=== PATIENT | male | born 1995 | race Two or more races ===

== ENCOUNTER 2022-08-23 01:54 | Emergency (ER) | payer BC ==
[~2022-08-23] VITALS: Ht 172.7 cm; Wt 99.8 kg
--- NOTE | 2022-08-23 02:40 | NUR ---
BIBSELF C/O ABD PAIN X 3 HRS LOWER ABD, + N/V . PATIENT IS AAOX4. ABLE TO MAKE NEEDS KNOWN. AMBULATORY. PLACED COMFORTABLY IN BED. VITALS CHECKED.
[2022-08-23] MEDS ORDERED: ONDANSETRON HCL/PF 4 MG/2 ML VIAL ONE (02:56)
[2022-08-23] MEDS ORDERED: KETOROLAC TROMETHAMINE 15 MG/ML VIAL ONE (02:56)
[2022-08-23] MEDS ORDERED: IV NS 0.9% 1,000 ML BAG IV ONE (03:00)
[2022-08-23] MEDS ORDERED: ONDANSETRON HCL/PF 4 MG/2 ML VIAL IVP ONE (03:00)
[2022-08-23] MEDS ORDERED: KETOROLAC TROMETHAMINE INJ 30 MG/ML VIAL IV ONE ×2 (03:00→05:30)
--- NOTE | 2022-08-23 03:11 | NUR ---
URINE SPECIMEN SENT TO LAB
--- NOTE | 2022-08-23 03:11 | NUR ---
IV SCOTTIE INSERTED ON LEFT AC G18. BLOOD DRAWN AND SENT TO LAB
--- NOTE | 2022-08-23 03:22 | NUR ---
BROUGHT TO CT DEPT
--- NOTE | 2022-08-23 03:28 | NUR ---
CAME BACK FROM CT DEPT
[2022-08-23 03:40] LABS: BASOPHILS % (AUTO) 0.3 % (0.0-2.0); EOSINOPHILS % (AUTO) 0.1 % (0.0-6.0); HEMATOCRIT 49 % (39-51); HEMOGLOBIN 16.1 g/dL (13.5-17.5); LYMPHOCYTES # (AUTO) 0.9 K/uL (0.8-4.8); LYMPHOCYTES % (AUTO) 5.4 % (20.0-44.0); MEAN CORPUSCULAR HGB CONC 33 g/dl (31.0-36.0); MEAN CORPUSCULAR VOLUME 90 fL (80-96); NEUTROPHILS # (AUTO) 14.6 K/uL (1.8-8.9); NEUTROPHILS % (AUTO) 88.2 % (43.0-81.0); PLATELET COUNT (AUTO) 285 K/uL (150-450); RED BLOOD CELL COUNT(AUTO) 5.41 MIL/uL (4.5-6.0); WHITE BLOOD COUNT (AUTO) 16.6 K/uL (4.3-11.0)
[2022-08-23 03:43] LABS: BILIRUBIN,URINE NEGATIVE (NEGATIVE); COLOR,URINE YELLOW (YELLOW); LEUKOCYTE ESTERASE ,URINE NEGATIVE (NEGATIVE); NITRITE, URINE NEGATIVE (NEGATIVE); PROTEIN,URINE NEGATIVE (NEGATIVE); UGLUCOSE NEGATIVE (NEGATIVE); UROBILINOGEN,URINE 0.2 EU/dL (0.2)
[2022-08-23 03:54] LABS: ALBUMIN 4.3 g/dL (3.4-5.0); BILIRUBIN,DIRECT 0.1 mg/dL (0.0-0.2); BILIRUBIN,TOTAL 0.5 mg/dL (0.2-1.0); CALCIUM, SERUM 8.9 mg/dL (8.5-10.1); CREATININE 1.3 mg/dL (0.6-1.3); POTASSIUM 3.3 mmol/L (3.5-5.1); TOTAL PROTEIN, SERUM 7.5 g/dL (6.4-8.2)
[2022-08-23 05:33] VITALS: BP 134/87
--- NOTE | 2022-08-23 05:33 | NUR ---
Patient discharged to home in stable condition. Written and verbal after care instructions given. Patient verbalizes understanding of instruction.
--- NOTE | 2022-08-23 05:33 | NUR ---
IV SCOTTIE REMOVED
== END 2022-08-23 05:34 | disposition home or self-care (01) ==
LOC: ER 01:57
DX: N20.0 Calculus of kidney (principal); R10.30 Lower abdominal pain, unspecified; Z60.2 Problems related to living alone
CPT/HCPCS: 99285; 74176; 96374; 96361; 96375; 85025; 80048; 83690; 80076; 81003; 36415; J2405; J7030; J1885